=== PATIENT | female | born 1985 | race African-American/Black ===

== ENCOUNTER 2017-01-15 10:03 | Emergency (ER) | payer SELFPAY ==
[~2017-01-15] VITALS: Ht 160 cm; Wt 50.0 kg
[~2017-01-15 10:03] MED LIST: ANTIVERT OR; BACTRIM DS1 TAB PO; CIPRO500 MG OR; HYDROCO/APAP1 T10 PO; NAPROSYN500 MG PO; NO HOME MEDS; PYRIDIUM200 MG PO; REGLAN10 MG OR; TORADOL OR; ULTRAM50 M1 PO
[2017-01-15] MEDS ORDERED: NAPROSYN500 MG PO (11:05)
[2017-01-15 11:33] VITALS: BP 118/62
== END 2017-01-15 11:33 | disposition home or self-care (01) | DRG 554 ==
LOC: ED 10:03
DX: M19.022 Primary osteoarthritis, left elbow (principal); F17.210 Nicotine dependence, cigarettes, uncomplicated; S53.402A Unspecified sprain of left elbow, initial encounter; X58.XXXA Exposure to other specified factors, initial encounter